=== PATIENT | female | born 1995 ===

== ENCOUNTER 2016-11-19 23:06 | Emergency (ER) | payer MEDICAID, OTHER ==
[2016-11-19 23:06] VITALS: BMI 33.2
[2016-11-19 23:21] VITALS: BP 101/60; PULSE 62; RESP 16; TEMP 98.2; O2SAT 100
--- NOTE | 2016-11-19 23:48 | ED PDOC ---
HPI: General Adult Time Seen by Provider: 11/19/16 23:23 Chief Complaint (Nursing): ENT Problem Chief Complaint (Provider): throat pain History Per: Patient History/Exam Limitations: no limitations Onset/Duration Of Symptoms: Hrs (1) Current Symptoms Are (Timing): Still Present Additional History Per: Patient Additional Complaint(s): 21 y/o female no past medical history presents with throat pain x 1 hour. Patient states pain started after drinking out of a glass bottle and eating boneless chicken, rice, and beans for dinner. Patient states she feels like a piece of glass is stuck in her throat, notes discomfort to left lower neck when swallowing. Denies fever, nausea/vomiting, cough, difficulty speaking/ swallowing, shortness of breath. Past Medical History Reviewed: Historical Data, Nursing Documentation, Vital Signs Vital Signs: Last Vital Signs Temp 98.2 F 11/19/16 23:18 Pulse 62 11/19/16 23:18 Resp 16 11/19/16 23:18 BP 101/60 11/19/16 23:18 Pulse Ox 100 11/19/16 23:48 - Medical History PMH: No Chronic Diseases - Surgical History Surgical History: No Surg Hx - Family History Family History: States: Unknown Family Hx - Social History Current smoker - smoking cessation education provided: No Ex-Smoker (has not smoked in the last 12 months): No Alcohol: None Drugs: Denies - Immunization History Hx Tetanus Toxoid Vaccination: Yes Hx Influenza Vaccination: Yes Hx Pneumococcal Vaccination: No - Home Medications Home Medications: Ambulatory Orders Medication Instructions Recorded Multivitamin and [id number] 1 tab PO DAILY #30 tab 02/26/14 [] Ibuprofen [Motrin Tab] 600 mg PO Q6 PRN #0 tab 08/17/15 Sennosides A and B [Senokot Tab] 17.2 mg PO HS #0 tab 08/17/15 oxyCODONE/Acetaminophen [Percocet 1 tab PO Q4 PRN #0 tab 08/17/15 5/325 mg Tab] Ibuprofen [Motrin Tab] 1 tab PO Q6 PRN #20 tab 11/20/16 - Allergies Allergies/Adverse Reactions: Allergies Allergy/AdvReac Type Severity Reaction Status Date / Time No Known Allergies Allergy Verified 11/19/16 23:17 Review of Systems ROS Statement: Except As Marked, All Systems Reviewed And Found Negative ENT: Positive for: Throat Pain Physical Exam - Reviewed Nursing Documentation Reviewed: Yes Vital Signs Reviewed: Yes - Physical Exam Appears: Positive for: Well, Non-toxic, No Acute Distress Head Exam: Positive for: ATRAUMATIC, NORMAL INSPECTION, NORMOCEPHALIC Skin: Positive for: Normal Color Eye Exam: Positive for: Normal appearance ENT: Positive for: Normal ENT Inspection Cardiovascular/Chest: Positive for: Regular Rate, Rhythm Respiratory: Positive for: Normal Breath Sounds Extremity: Positive for: Normal ROM Neurologic/Psych: Positive for: Alert, Oriented - ECG O2 Sat by Pulse Oximetry: 100 - Progress ED Course And Treament: CT soft tissue neck, ibuprofen PO EXAM: CT Neck Without Intravenous Contrast CLINICAL HISTORY: 21 years old, female; Pain; Throat pain; Additional info: Possible foreign body in throat TECHNIQUE: Axial computed tomography images of the neck without intravenous contrast. All CT scans at this facility use one or more dose reduction techniques, viz.: automated exposure control; ma/kV adjustment per patient size (including targeted exams where dose is matched to indication; i.e. head); or iterative reconstruction technique. Coronal and sagittal reformatted images were created and reviewed. COMPARISON: No relevant prior studies available. FINDINGS: Limitations: Lack of intravenous contrast. Nasopharynx: Unremarkable. Oropharynx: No significant tonsillar enlargement. Hypopharynx: Unremarkable. Larynx: Unremarkable. Normal epiglottis. Trachea: Unremarkable. Retropharyngeal space: Unremarkable. Submandibular/parotid glands: Glands are normal in size. Thyroid: No enlarged or calcified nodules. Bones/joints: No acute fracture. Soft tissues: No radiopaque foreign bodies. Vasculature: No acute findings. Lymph nodes: No pathologically enlarged lymph nodes. Lung apices: Unremarkable as visualized. IMPRESSION: 1. No radiopaque foreign bodies. Thank you for allowing us to participate in the care of your patient. Dictated and Authenticated by: Bhaskar Lemos MD Patient educated on findings, discharged with rx ibuprofen. Advised follow up PMD 2-3 days. Return to ED for worsening/concerning symptoms. Disposition - Clinical Impression Clinical Impression: Foreign body sensation in throat - Patient ED Disposition Is Patient to be Admitted: No Counseled Patient/Family Regarding: Studies Performed, Diagnosis, Need For Followup, Rx Given - Disposition Disposition: Routine/Home Disposition Time: 02:56 Condition: GOOD Prescriptions: Ibuprofen [Motrin Tab] 1 tab PO Q6 PRN #20 tab PRN Reason: Pain, Moderate (4-7)
--- NOTE | 2016-11-20 02:46 | CT ---
EXAM: CT Neck Without Intravenous Contrast CLINICAL HISTORY: 21 years old, female; Pain; Throat pain; Additional info: Possible foreign body in throat TECHNIQUE: Axial computed tomography images of the neck without intravenous contrast. All CT scans at this facility use one or more dose reduction techniques, viz.: automated exposure control; ma/kV adjustment per patient size (including targeted exams where dose is matched to indication; i.e. head); or iterative reconstruction technique. Coronal and sagittal reformatted images were created and reviewed. COMPARISON: No relevant prior studies available. FINDINGS: Limitations: Lack of intravenous contrast. Nasopharynx: Unremarkable. Oropharynx: No significant tonsillar enlargement. Hypopharynx: Unremarkable. Larynx: Unremarkable. Normal epiglottis. Trachea: Unremarkable. Retropharyngeal space: Unremarkable. Submandibular/parotid glands: Glands are normal in size. Thyroid: No enlarged or calcified nodules. Bones/joints: No acute fracture. Soft tissues: No radiopaque foreign bodies. Vasculature: No acute findings. Lymph nodes: No pathologically enlarged lymph nodes. Lung apices: Unremarkable as visualized. IMPRESSION: 1. No radiopaque foreign bodies.
== END 2016-11-20 03:04 | disposition home or self-care (01) ==
LOC: H.ER 23:06
DX: R09.89 Other specified symptoms and signs involving the circulatory and respiratory systems (principal)